=== PATIENT | female | born 1965 | race Caucasian/White ===

== ENCOUNTER 2022-08-10 07:55 | Day surgery (SDC) | payer OTHER ==
[~2022-08-10] VITALS: Ht 154.9 cm; Wt 90.7 kg
[2022-08-10] MEDS ORDERED: ONDANSETRON HCL 4 MG/2 ML VIAL IVP ONE (09:04)
[2022-08-10] MEDS ORDERED: PROPOFOL 200MG/ 20ML VIAL (DIPRIVAN) IV ONE (09:04)
[2022-08-10] MEDS ORDERED: DEXAMETHASONE SOD PHOSPHATE 4 MG/ML VIAL IVP ONE (09:04)
[2022-08-10] MEDS ORDERED: SEVOFLURANE 15 MIN GAS INH ONE (09:04)
[2022-08-10] MEDS ORDERED: CEFAZOLIN 2 GM IVPB PREMIX 50 ML IV ONE (09:04)
[2022-08-10] MEDS ORDERED: NS IRRIG SOLN 5000 ML IR ONE (09:04)
[2022-08-10] MEDS ORDERED: fentaNYL CITRATE/PF 100 MCG/2 ML AMP IVP ONE (09:04)
[2022-08-10] MEDS ORDERED: EPINEPHrine JECT 0.1 MG/ML SYR IVP ONE (09:04)
[2022-08-10] MEDS ORDERED: BUPIVACAINE /PF 0.5% 30 ML VIAL INJ ONE (09:04)
[2022-08-10] MEDS ORDERED: LR 1,000 ML IV.SOLN IV ONE (09:04)
[2022-08-10] MEDS ORDERED: KETOROLAC TROMETHAMINE 30 MG VIAL IVP ONE (09:04)
[2022-08-10 09:18] LABS: HCG,QUAL RESULT NEGATIVE (NEGATIVE)
[2022-08-10] MEDS ORDERED: hydrALAZINE HCL 20 MG/ML VIAL IVP PRN (10:00)
[2022-08-10] MEDS ORDERED: MORPHINE 4 MG INJ. 4 MG/ML VIAL IVP PRN (10:00)
[2022-08-10] MEDS ORDERED: KETOROLAC TROMETHAMINE 30 MG VIAL IVP PRN (10:00)
[2022-08-10] MEDS ORDERED: METOCLOPRAMIDE HCL 10 MG/2 ML VIAL IVP PRN (10:00)
[2022-08-10] MEDS ORDERED: HYDROmorphone 1 MG/ML INJ. CARTRIDGE IVP PRN (10:00)
[2022-08-10] MEDS ORDERED: HYDROmorphone 1 MG/ML INJ. CARTRIDGE ONE ×2 (10:43→11:14)
[2022-08-10] MEDS ORDERED: IBUPROFEN 800 MG TABLET PO SCH (15:00)
[2022-08-10 15:33] VITALS: BP_SYST 150
== END 2022-08-10 12:45 | disposition home or self-care (01) ==
LOC: SDS 07:55 → SMU 07:56 → SDS 12:45
PROVIDERS: ATTEND Student in an Organized Health Care Education/Training Program
DX: S83.232A Complex tear of medial meniscus, current injury, left knee, initial encounter (principal); M70.52 Other bursitis of knee, left knee; Z90.49 Acquired absence of other specified parts of digestive tract; Z98.890 Other specified postprocedural states; W19.XXXA Unspecified fall, initial encounter; Y93.89 Activity, other specified; Y92.89 Other specified places as the place of occurrence of the external cause; Y99.8 Other external cause status; E03.9 Hypothyroidism, unspecified; Z20.822 Contact with and (suspected) exposure to COVID-19
CPT/HCPCS: 36415 ×2; 29881; 84703; 87426; U0003; J3490; J0690; J1100; J0171; J1885; J2405; J2704; J3010; J1170; J7120

== ENCOUNTER 2022-12-07 07:51 | Day surgery (SDC) | payer OTHER ==
[~2022-12-07] VITALS: Ht 154.9 cm; Wt 90.7 kg
[2022-12-07 08:25] LABS: HCG,QUAL RESULT NEGATIVE (NEGATIVE)
[2022-12-07] MEDS ORDERED: CEFAZOLIN SOD 2 GM in D5W 50 ML IV ONE (12:45)
[2022-12-07] MEDS ORDERED: fentaNYL CITRATE 250 MCG/5 ML AMP ONE (12:55)
[2022-12-07] MEDS ORDERED: BUPIVACAINE /EPINEPHRINE/PF 0.5% 30 ML VIAL INJ ONE (12:55)
[2022-12-07] MEDS ORDERED: NS 1000 ML IV.SOLN IV ONE (12:55)
[2022-12-07] MEDS ORDERED: ONDANSETRON HCL 4 MG/2 ML VIAL ONE (12:55)
[2022-12-07] MEDS ORDERED: MIDAZOLAM HCL 5 MG/ML VIAL (VERSED) IV ONE (12:55)
[2022-12-07] MEDS ORDERED: ceFAZolin SODIUM 1 GM VIAL ONE (12:55)
[2022-12-07] MEDS ORDERED: SEVOFLURANE 15 MIN GAS INH ONE (12:55)
[2022-12-07] MEDS ORDERED: KETOROLAC TROMETHAMINE 30 MG VIAL ONE (12:55)
[2022-12-07] MEDS ORDERED: PROPOFOL 200MG/ 20ML VIAL (DIPRIVAN) IV ONE (12:55)
[2022-12-07] MEDS ORDERED: ACETAMINOPHEN I.V. 1000 MG /100 ML IVPB PREMIX IV ONE (12:55)
[2022-12-07] MEDS ORDERED: DEXAMETHASONE SOD PHOSPHATE 4 MG/ML VIAL ONE (12:55)
[2022-12-07] MEDS ORDERED: LABETALOL 100 MG/ 20ML VIAL IVP PRN (13:45)
[2022-12-07] MEDS ORDERED: METOCLOPRAMIDE HCL 10 MG/2 ML VIAL IVP PRN (13:45)
[2022-12-07] MEDS ORDERED: hydrALAZINE HCL 20 MG/ML VIAL IVP PRN (13:45)
[2022-12-07] MEDS ORDERED: HYDROmorphone 1 MG/ML INJ. CARTRIDGE IVP PRN ×2 (13:45)
[2022-12-07] MEDS ORDERED: MEPERIDINE HCL/PF 25 MG/ML DISP.SYRIN IVP PRN (13:45)
[2022-12-07] MEDS ORDERED: LR 1,000 ML IV SCH (13:45)
[2022-12-07] MEDS ORDERED: MIDAZOLAM HCL 2 MG/2 ML VIAL (VERSED) IVP PRN (13:45)
[2022-12-07] MEDS ORDERED: ACETAMINOPHEN I.V. 1000 MG 100 ML IV ONE (13:50)
[2022-12-07] MEDS: HYDROmorphone 1 MG/ML INJ. CARTRIDGE ONE ×2 (14:17→14:30)
[2022-12-07] MEDS ORDERED: HYDROmorphone 1 MG/ML INJ. CARTRIDGE ONE (16:00)
[2022-12-07 16:05] VITALS: BP_SYST 151
== END 2022-12-07 16:40 | disposition home or self-care (01) ==
LOC: SMU 07:51 → SDS 07:51
PROVIDERS: ATTEND Student in an Organized Health Care Education/Training Program
DX: S83.241A Other tear of medial meniscus, current injury, right knee, initial encounter (principal); S83.281A Other tear of lateral meniscus, current injury, right knee, initial encounter; M70.52 Other bursitis of knee, left knee; M17.11 Unilateral primary osteoarthritis, right knee; X58.XXXA Exposure to other specified factors, initial encounter; Y93.89 Activity, other specified; Y92.89 Other specified places as the place of occurrence of the external cause; Y99.8 Other external cause status; Z20.822 Contact with and (suspected) exposure to COVID-19
CPT/HCPCS: 87081; 29880; 84703; 36415; 87426; J3490; J0690; J1100; J1885; J2250; J2405; J2704; J3010; J1170; J7060; J7030; J0131